=== PATIENT | female | born 1980 | race Caucasian/White ===

== ENCOUNTER 2020-12-04 19:50 | Outpatient (CLI) | payer OTHER, BC | END 2020-12-04 19:51 | disposition EMS.NT | LOC: EMS 19:50 | DX: Z04.1 Encounter for examination and observation following transport accident (principal) ==

== ENCOUNTER 2020-12-04 20:58 | Emergency (ER) | payer OTHER, BC ==
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
[2020-12-04] MEDS ORDERED: KETOROLAC 15 MG/ML VIAL IM STA (21:50)
[2020-12-04] MEDS ORDERED: ACETAMINOPHEN 325 MG TABLET PO STA (21:50)
[2020-12-04] MEDS ORDERED: oxyCODONE 5 MG TABLET PO STA (23:58)
[2020-12-05 01:15] VITALS: BP 119/81
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
== END 2020-12-05 00:31 | disposition home or self-care (01) ==
LOC: ED 20:58
DX: S20.219A Contusion of unspecified front wall of thorax, initial encounter (principal); V49.59XA Passenger injured in collision with other motor vehicles in traffic accident, initial encounter
CPT/HCPCS: 71250; 72125; 96372; 99284; A9270